=== PATIENT | female | born 1960 | race Caucasian/White ===

== ENCOUNTER 2022-08-20 12:24 | Emergency (ER) | payer MEDICAID ==
[~2022-08-20] VITALS: Ht 162.6 cm; Wt 82.5 kg
[2022-08-20] MEDS ORDERED: ALBUTEROL SULF 2.5 MG/0.5ML(0.5%) NEB SOLN NEB ONE (12:45)
[2022-08-20] MEDS ORDERED: DexAMETHasone SOD PHOS 10MG/1ML VIAL INJ IV ONE (12:45)
[2022-08-20] MEDS ORDERED: IPRATROPIUM BROM 0.5 MG/2.5ML INH SOL NEB ONE (12:45)
[2022-08-20 12:57] VITALS: BP 140/67
[2022-08-20 13:23] LABS: Basophils # (auto) 0 10 ^3/uL (0-0.2); Basophils % (auto) 0.4 % (0.0-2.0); Eosinophils # (auto) 0 10 ^3/uL (0-0.8); Eosinophils % (auto) 0.3 % (0.0-7.0); Hematocrit 44.8 % (36.0-46.0); Hemoglobin 14.7 g/dL (12.2-16.2); Lymphocytes # (auto) 0.8 10 ^3/uL (0.4-5.4); Lymphocytes % (auto) 6.4 % (10.0-50.0); Mean Corpuscular Hemoglobin 29.1 pg (28.0-32.0); Mean Corpuscular Hgb Conc. 32.9 g/dL (32.0-36.0); Mean Corpuscular Volume 88.5 fL (80.0-100.0); Monocytes # (auto) 0.2 10 ^3/uL (0-1.3); Monocytes % (auto) 1.7 % (0.0-12.0); Neutrophils # (auto) 10.9 10 ^3/uL (1.6-8.6); Neutrophils % (auto) 91.2 % (37.0-80.0); Nucleated Red Blood Cells % 0.1 %; Red Blood Cells 5.06 10^6/uL (4.0-5.20); Red Cell Distribution Width 14.6 % (11.8-14.3); White Blood Cell 11.9 10^3/uL (4.4-10.8)
[2022-08-20 13:48] LABS: Albumin 3.7 g/dL (3.4-5.0); Calcium 8.8 mg/dL (8.5-10.1); Potassium 4.5 mmol/L (3.5-5.1)
[2022-08-20 13:51] LABS: BUN/Creatinine Ratio 14.6 (10.0-20.0); Bilirubin, Total 0.4 mg/dL (0.2-1.0); Total Protein 7.6 g/dL (6.4-8.2)
[2022-08-20 14:41] LABS: Urine Bacteria NONE SEEN /hpf (None Seen); Urine Blood Negative /uL (Negative); Urine Mucus FEW (None Seen); Urine Specific Gravity 1.021 (1.001-1.035); Urine WBC 2 /hpf (0 - 5)
[2022-08-20] MEDS ORDERED: PRED20TA2 PO (15:36)
== END 2022-08-20 15:45 | disposition left against medical advice (07) ==
LOC: ER 12:24
DX: J45.901 Unspecified asthma with (acute) exacerbation (principal); R09.02 Hypoxemia; J81.1 Chronic pulmonary edema; E11.9 Type 2 diabetes mellitus without complications; I10 Essential (primary) hypertension
CPT/HCPCS: 36415; 71045; 80053; 81001; 83605; 83735; 83880; 84484; 85025; 93005; 94640; 96374; 99285; J1100; J7644

== ENCOUNTER 2022-12-29 18:49 | Inpatient (IN) | payer MEDICAID ==
[~2022-12-29] VITALS: Ht 162.6 cm; Wt 63.8 kg
[~2022-12-29 18:49] MED LIST: PRED20TA2 PO
[2022-12-29 20:13] LABS: Basophils # (auto) 0.1 10 ^3/uL (0-0.2); Basophils % (auto) 0.6 % (0.0-2.0); Eosinophils # (auto) 0.1 10 ^3/uL (0-0.8); Eosinophils % (auto) 0.6 % (0.0-7.0); Hematocrit 35.1 % (36.0-46.0); Hemoglobin 11.3 g/dL (12.2-16.2); Lymphocytes # (auto) 1.2 10 ^3/uL (0.4-5.4); Lymphocytes % (auto) 7.6 % (10.0-50.0); Mean Corpuscular Hemoglobin 27.9 pg (28.0-32.0); Mean Corpuscular Hgb Conc. 32.2 g/dL (32.0-36.0); Mean Corpuscular Volume 86.6 fL (80.0-100.0); Monocytes # (auto) 0.9 10 ^3/uL (0-1.3); Monocytes % (auto) 5.7 % (0.0-12.0); Neutrophils % (auto) 85.5 % (37.0-80.0); Red Blood Cells 4.05 10^6/uL (4.0-5.20); White Blood Cell 15.2 10^3/uL (4.4-10.8)
[2022-12-29 20:35] LABS: Alanine Aminotransferase 20 U/L (7-40); Albumin 3.5 g/dL (3.2-4.8); Alkaline Phosphatase 233 U/L (46-116); Anion Gap 8 (5-15); Aspartate Aminotransferase 16 U/L (13-40); BUN/Creatinine Ratio 23.5 (10.0-20.0); Bilirubin, Total 0.3 mg/dL (0.2-1.0); Blood Urea Nitrogen 20 mg/dL (9-23); Calcium 11.5 mg/dL (8.5-10.1); Carbon Dioxide 25 mmol/L (20-30); Chloride 102 mmol/L (98-107); Glucose 334 mg/dL (74-106); Sodium 135 mmol/L (136-145); Total Protein 6.8 g/dL (5.7-8.2)
[2022-12-29 20:44] VITALS: PULSE 94; RESP 18; O2SAT 96
[2022-12-29] MEDS ORDERED: SODIUM CHLORIDE 0.9% 1,000 ML IVB ONE (21:30)
[2022-12-29] MEDS ORDERED: ALBUTEROL SULF 2.5 MG/0.5ML(0.5%) NEB SOLN HHN ONE (21:30)
[2022-12-29] MEDS ORDERED: DexAMETHasone SOD PHOS 10MG/1ML VIAL INJ IV ONE (21:30)
[2022-12-29] MEDS ORDERED: ACETAMINOPHEN 325 MG TAB PO ONE (21:30)
[2022-12-29] MEDS ORDERED: cefTRIAXone 1GM/50ML D5W 50 ML IV ONE (21:30)
[2022-12-29] MEDS ORDERED: IPRATROPIUM BROM 0.5 MG/2.5ML INH SOL HHN ONE (21:30)
[2022-12-29] MEDS ORDERED: ONDANSETRON HCL 4 MG/2 ML VIAL IV ONE ×2 (21:30)
[2022-12-29] MEDS ORDERED: ASPirin 81 mg TAB PO ONE (21:30)
[2022-12-29] MEDS ORDERED: AZITHROMYCIN 500MG/ 250ML 250 ML IV ONE (21:30)
[2022-12-29] MEDS ORDERED: HYDROmorphone HCL 2 MG/ML VL/or syr IV ONE (21:30)
[2022-12-29] MEDS ORDERED: PANTOPRAZOLE 40 MG/10 ML VIAL INJ IV ONE (21:30)
[2022-12-29 21:47] LABS: Base Excess 0.1 mmol/L (-2.0-2.0)
[2022-12-29 21:53] LABS: Blood Alcohol < 3.0 mg/dL (<10); Magnesium 1.4 mg/dL (1.6-2.6)
[2022-12-29 21:56] LABS: INR 1.15 (0.9-1.15); Partial Thromboplastin Time 29.9 SEC (24.5-34.5)
[2022-12-29] MEDS ORDERED: IOHEXOL 350 MG/ML 100ML IJ ONE (23:00)
[2022-12-29 23:10] VITALS: O2SAT 97
[2022-12-29 23:41] LABS: COVID19 ANTIGEN SOFIA FIA NEGATIVE (NEGATIVE); Rapid Influenza A Negative (Negative); Rapid Influenza B Negative (Negative)
[2022-12-30] VITALS (8 sets, daily range): BP systolic 137–150; BP diastolic 70; PULSE 79–90; RESP 15–17; TEMP 97.7–98.2; O2SAT 97–98
[2022-12-30] MEDS ORDERED: HYDROmorphone HCL 2 MG/ML VL/or syr IV ONE (02:00)
[2022-12-30] MEDS ORDERED: ONDANSETRON HCL 4 MG/2 ML VIAL IV ONE (02:00)
[2022-12-30] MEDS ORDERED: SUCR1TAB PO (02:59)
[2022-12-30] MEDS ORDERED: GABA800T97 PO (02:59)
[2022-12-30] MEDS ORDERED: MORP30TA PO (02:59)
[2022-12-30] MEDS ORDERED: AMLO1TAB23 PO (02:59)
[2022-12-30] MEDS ORDERED: APIX5TAB PO (02:59)
[2022-12-30] MEDS ORDERED: ENAL1TAB48 PO (02:59)
[2022-12-30] MEDS ORDERED: DEXTROSE (50%) 50ML SYRG IV PRN (03:00)
[2022-12-30] MEDS ORDERED: NITROGLYCERIN 0.4 MG SL TAB SL PRN (03:00)
[2022-12-30] MEDS ORDERED: MORPHINE SULFATE INJ 2 MG/ml SYRG IV PRN (03:00)
[2022-12-30] MEDS ORDERED: ACETAMINOPHEN 325 MG TAB PO PRN (03:00)
[2022-12-30 03:29] LABS: Urine Bacteria NONE SEEN /hpf (None Seen); Urine Blood Negative /uL (Negative); Urine Clarity Clear (Clear); Urine Color Yellow (Yellow); Urine Protein, UAD TRACE (Negative); Urine Specific Gravity 1.035 (1.001-1.035); Urine Urobilinogen Normal (Negative); Urine WBC 2 /hpf (0 - 5); Urine pH 6.5 (5.0-8.0)
[2022-12-30 04:04] LABS: Amphetamine Screen, Urine Neg (NEGATIVE); Barbiturate Scree,Urine Neg (NEGATIVE); Benzodiazephine Screen, Urine Neg (NEGATIVE); Cannabinoid Screen, Urine Pos (NEGATIVE); Cocaine Screen, Urine Neg (NEGATIVE); Opiate Scree,Urine Pos (NEGATIVE); Phencyclidine Screen, Urine Neg (NEGATIVE)
[2022-12-30 05:23] LABS: Triglycerides 86 mg/dL (< 150)
[2022-12-30 05:24] LABS: LDL Cholesterol 57 mg/dL (< 100)
[2022-12-30 05:25] LABS: Cholesterol 130 mg/dL (< 200); HDL Cholesterol 47 mg/dL (40-59)
[2022-12-30] MEDS: InsuLIN REG 1unit/0.01ml Soln (100units/ml) SC SCH ×4 (07:15→21:52)
[2022-12-30] MEDS: ACCU-CHEK COMFORT CURVE STRIP VI SCH ×4 (07:16→21:51)
[2022-12-30] MEDS: ONDANSETRON HCL 4 MG/2 ML VIAL IV PRN (08:13)
[2022-12-30] MEDS: MORPHINE SULFATE INJ 2 MG/ml SYRG IV PRN ×4 (08:13→21:14)
[2022-12-30] MEDS ORDERED: ENOXAPARIN SOD 40 MG/0.4 ML SYRINGE SC SCH (10:00)
[2022-12-30] MEDS: PANTOPRAZOLE 40 MG/10 ML VIAL INJ IV SCH (10:22)
[2022-12-30] MEDS: ENOXAPARIN SOD 60 MG/0.6 ML SYRINGE SC SCH ×2 (10:23→21:19)
[2022-12-30] MEDS: amLODIPine BESYLATE 5 MG TAB PO SCH (10:23)
[2022-12-30] MEDS: predniSONE 20 MG TAB PO SCH (10:23)
[2022-12-30] MEDS: ENALAPRIL MALEATE 10 MG TAB PO SCH ×2 (10:23→21:14)
[2022-12-30] MEDS: SUCRALFATE 1 GM TAB PO SCH ×2 (10:23→21:14)
[2022-12-30] MEDS ORDERED: HYDR-4795 (12:59)
[2022-12-30] MEDS ORDERED: TRAZ1TAB12 PO (12:59)
[2022-12-30] MEDS: GABAPENTIN 300 MG CAP PO SCH ×2 (14:26→21:13)
[2022-12-30] MEDS: AZITHROMYCIN 500MG/ 250ML 250 ML IV SCH (21:15)
[2022-12-31] VITALS (9 sets, daily range): BP systolic 139–143; BP diastolic 71–73; PULSE 79–101; RESP 18–20; TEMP 97.8–98.3; O2SAT 95–98
[2022-12-31] MEDS: TEMAZEPAM 15 MG CAP PO PRN ×2 (00:10→22:54)
[2022-12-31] MEDS: MORPHINE SULFATE INJ 2 MG/ml SYRG IV PRN ×5 (02:07→19:58)
[2022-12-31 05:55] LABS: Basophils # (auto) 0.1 10 ^3/uL (0-0.2); Basophils % (auto) 0.5 % (0.0-2.0); Eosinophils # (auto) 0 10 ^3/uL (0-0.8); Eosinophils % (auto) 0.2 % (0.0-7.0); Hematocrit 37.3 % (36.0-46.0); Hemoglobin 12.1 g/dL (12.2-16.2); Lymphocytes # (auto) 1.5 10 ^3/uL (0.4-5.4); Lymphocytes % (auto) 7.4 % (10.0-50.0); Mean Corpuscular Hemoglobin 27.5 pg (28.0-32.0); Mean Corpuscular Hgb Conc. 32.4 g/dL (32.0-36.0); Mean Corpuscular Volume 84.9 fL (80.0-100.0); Monocytes # (auto) 1.2 10 ^3/uL (0-1.3); Neutrophils # (auto) 17.7 10 ^3/uL (1.6-8.6); Neutrophils % (auto) 85.9 % (37.0-80.0); Red Blood Cells 4.39 10^6/uL (4.0-5.20); Red Cell Distribution Width 13.7 % (11.8-14.3); White Blood Cell 20.5 10^3/uL (4.4-10.8)
[2022-12-31 06:07] LABS: Alanine Aminotransferase 16 U/L (7-40); Albumin 3.5 g/dL (3.2-4.8); Alkaline Phosphatase 222 U/L (46-116); Anion Gap 7 (5-15); Aspartate Aminotransferase 10 U/L (13-40); BUN/Creatinine Ratio 17.2 (10.0-20.0); Blood Urea Nitrogen 10 mg/dL (9-23); Carbon Dioxide 25 mmol/L (20-30); Chloride 103 mmol/L (98-107); Glucose 165 mg/dL (74-106); Potassium 3.2 mmol/L (3.5-5.1); Sodium 135 mmol/L (136-145)
[2022-12-31 06:08] LABS: Bilirubin, Total 0.3 mg/dL (0.2-1.0)
[2022-12-31] MEDS: ACCU-CHEK COMFORT CURVE STRIP VI SCH ×4 (06:15→21:53)
[2022-12-31] MEDS: GABAPENTIN 300 MG CAP PO SCH ×3 (06:16→21:52)
[2022-12-31] MEDS: InsuLIN REG 1unit/0.01ml Soln (100units/ml) SC SCH ×4 (06:16→22:03)
[2022-12-31] MEDS: DOCUSATE SOD 100 MG CAP PO PRN ×2 (06:20→18:33)
[2022-12-31] MEDS: HYDROcodone-ACET 5/325MG TAB PO PRN ×2 (08:54→21:52)
[2022-12-31] MEDS: PANTOPRAZOLE 40 MG/10 ML VIAL INJ IV SCH (10:53)
[2022-12-31] MEDS: ENOXAPARIN SOD 60 MG/0.6 ML SYRINGE SC SCH ×2 (10:53→21:52)
[2022-12-31] MEDS: ENALAPRIL MALEATE 10 MG TAB PO SCH ×2 (10:54→21:53)
[2022-12-31] MEDS: predniSONE 20 MG TAB PO SCH (10:54)
[2022-12-31] MEDS: SUCRALFATE 1 GM TAB PO SCH ×2 (10:54→21:52)
[2022-12-31] MEDS: amLODIPine BESYLATE 5 MG TAB PO SCH (10:55)
[2022-12-31] MEDS: AZITHROMYCIN 500MG/ 250ML 250 ML IV SCH (21:53)
[2023-01-01] MEDS: InsuLIN REG 1unit/0.01ml Soln (100units/ml) SC SCH ×4 (07:00→21:40)
[2023-01-01] MEDS: ACCU-CHEK COMFORT CURVE STRIP VI SCH ×4 (07:00→21:41)
[2023-01-01 08:00] VITALS: PULSE 85
[2023-01-01] MEDS: predniSONE 20 MG TAB PO SCH (10:00)
[2023-01-01] MEDS: amLODIPine BESYLATE 5 MG TAB PO SCH (10:00)
[2023-01-01] MEDS: ENOXAPARIN SOD 60 MG/0.6 ML SYRINGE SC SCH ×2 (10:00→21:40)
[2023-01-01] MEDS: PANTOPRAZOLE 40 MG/10 ML VIAL INJ IV SCH (10:00)
[2023-01-01] MEDS: ENALAPRIL MALEATE 10 MG TAB PO SCH ×2 (10:00→21:41)
[2023-01-01] MEDS: SUCRALFATE 1 GM TAB PO SCH ×2 (10:00→21:41)
[2023-01-01] MEDS: GABAPENTIN 300 MG CAP PO SCH ×3 (14:33→21:41)
[2023-01-01] MEDS: MORPHINE SULFATE INJ 2 MG/ml SYRG IV PRN ×3 (14:34→22:47)
[2023-01-01 16:55] VITALS: BP 143/76; PULSE 92; RESP 19; TEMP 99.2; O2SAT 95
[2023-01-01] MEDS: DOCUSATE SOD 100 MG CAP PO PRN (18:02)
[2023-01-01 18:42] VITALS: O2SAT 95
[2023-01-01 19:36] LABS: Basophils # (auto) 0.1 10 ^3/uL (0-0.2); Basophils % (auto) 0.4 % (0.0-2.0); Eosinophils # (auto) 0 10 ^3/uL (0-0.8); Hematocrit 37.8 % (36.0-46.0); Hemoglobin 12.4 g/dL (12.2-16.2); Lymphocytes # (auto) 0.7 10 ^3/uL (0.4-5.4); Lymphocytes % (auto) 4.3 % (10.0-50.0); Mean Corpuscular Hemoglobin 28.1 pg (28.0-32.0); Mean Corpuscular Hgb Conc. 32.8 g/dL (32.0-36.0); Mean Corpuscular Volume 85.6 fL (80.0-100.0); Monocytes # (auto) 0.5 10 ^3/uL (0-1.3); Monocytes % (auto) 3.3 % (0.0-12.0); Neutrophils # (auto) 14.3 10 ^3/uL (1.6-8.6); Red Blood Cells 4.42 10^6/uL (4.0-5.20); Red Cell Distribution Width 13.7 % (11.8-14.3); White Blood Cell 15.5 10^3/uL (4.4-10.8)
[2023-01-01 19:45] LABS: Alanine Aminotransferase 13 U/L (7-40); Albumin 3.5 g/dL (3.2-4.8); Alkaline Phosphatase 233 U/L (46-116); Anion Gap 6 (5-15); Aspartate Aminotransferase 9 U/L (13-40); BUN/Creatinine Ratio 18.8 (10.0-20.0); Bilirubin, Total 0.3 mg/dL (0.2-1.0); Blood Urea Nitrogen 15 mg/dL (9-23); Calcium 10.9 mg/dL (8.5-10.1); Carbon Dioxide 26 mmol/L (20-30); Chloride 101 mmol/L (98-107); Glucose 342 mg/dL (74-106); Potassium 3.5 mmol/L (3.5-5.1); Sodium 133 mmol/L (136-145)
[2023-01-01 19:46] LABS: Total Protein 7.1 g/dL (5.7-8.2)
[2023-01-01 20:10] VITALS: BP 124/69; PULSE 89; PULSE 94; RESP 18; TEMP 97.7
[2023-01-01] MEDS: HYDROcodone-ACET 5/325MG TAB PO PRN (21:41)
[2023-01-02] VITALS (9 sets, daily range): BP systolic 103–135; BP diastolic 55–69; PULSE 81–98; RESP 18; TEMP 37; O2SAT 92–97
[2023-01-02] MEDS: ONDANSETRON HCL 4 MG/2 ML VIAL IV PRN (02:39)
[2023-01-02] MEDS: MORPHINE SULFATE INJ 2 MG/ml SYRG IV PRN ×5 (02:45→22:32)
[2023-01-02] MEDS: HYDROcodone-ACET 5/325MG TAB PO PRN ×2 (04:32→20:16)
[2023-01-02 06:25] LABS: Basophils # (auto) 0.1 10 ^3/uL (0-0.2); Basophils % (auto) 0.3 % (0.0-2.0); Eosinophils # (auto) 0.1 10 ^3/uL (0-0.8); Eosinophils % (auto) 0.5 % (0.0-7.0); Hematocrit 38.1 % (36.0-46.0); Hemoglobin 12.3 g/dL (12.2-16.2); Lymphocytes # (auto) 1.6 10 ^3/uL (0.4-5.4); Lymphocytes % (auto) 8.6 % (10.0-50.0); Mean Corpuscular Hemoglobin 27.4 pg (28.0-32.0); Mean Corpuscular Hgb Conc. 32.4 g/dL (32.0-36.0); Mean Corpuscular Volume 84.7 fL (80.0-100.0); Monocytes # (auto) 1.3 10 ^3/uL (0-1.3); Monocytes % (auto) 6.8 % (0.0-12.0); Neutrophils # (auto) 15.5 10 ^3/uL (1.6-8.6); Neutrophils % (auto) 83.8 % (37.0-80.0); White Blood Cell 18.5 10^3/uL (4.4-10.8)
[2023-01-02 06:36] LABS: Alanine Aminotransferase 14 U/L (7-40); Alkaline Phosphatase 239 U/L (46-116); Anion Gap 8 (5-15); BUN/Creatinine Ratio 27.1 (10.0-20.0); Blood Urea Nitrogen 16 mg/dL (9-23); Carbon Dioxide 26 mmol/L (20-30); Chloride 103 mmol/L (98-107); Glucose 131 mg/dL (74-106); Sodium 137 mmol/L (136-145)
[2023-01-02 06:37] LABS: Albumin 3.4 g/dL (3.2-4.8); Aspartate Aminotransferase 11 U/L (13-40); Bilirubin, Total 0.4 mg/dL (0.2-1.0); Total Protein 6.8 g/dL (5.7-8.2)
[2023-01-02] MEDS: GABAPENTIN 300 MG CAP PO SCH ×3 (06:58→21:16)
[2023-01-02] MEDS: ACCU-CHEK COMFORT CURVE STRIP VI SCH ×4 (06:59→22:00)
[2023-01-02] MEDS: InsuLIN REG 1unit/0.01ml Soln (100units/ml) SC SCH ×4 (07:02→22:28)
[2023-01-02] MEDS ORDERED: POTASSIUM CHL 20 Meq TABLET PO ONE (08:45)
[2023-01-02] MEDS: ENOXAPARIN SOD 60 MG/0.6 ML SYRINGE SC SCH ×2 (10:00→21:16)
[2023-01-02] MEDS: DOXYCYCLINE 100MG/250ML 250 ML IV SCH ×2 (10:25→21:15)
[2023-01-02] MEDS: PANTOPRAZOLE 40 MG/10 ML VIAL INJ IV SCH (10:25)
[2023-01-02] MEDS: SUCRALFATE 1 GM TAB PO SCH ×2 (10:31→21:15)
[2023-01-02] MEDS: amLODIPine BESYLATE 5 MG TAB PO SCH (10:33)
[2023-01-02] MEDS: predniSONE 20 MG TAB PO SCH (10:33)
[2023-01-02] MEDS: ENALAPRIL MALEATE 10 MG TAB PO SCH ×2 (10:35→21:16)
[2023-01-03] VITALS (11 sets, daily range): BP systolic 128–154; BP diastolic 60–78; PULSE 64–108; RESP 16–22; TEMP 36.4; O2SAT 92–100
[2023-01-03] MEDS: MORPHINE SULFATE INJ 2 MG/ml SYRG IV PRN ×2 (04:45→08:53)
[2023-01-03] MEDS: GABAPENTIN 300 MG CAP PO SCH ×3 (06:00→20:53)
[2023-01-03] MEDS: ACCU-CHEK COMFORT CURVE STRIP VI SCH ×4 (06:47→21:50)
[2023-01-03] MEDS: InsuLIN REG 1unit/0.01ml Soln (100units/ml) SC SCH ×4 (06:47→21:50)
[2023-01-03] MEDS: DOXYCYCLINE 100MG/250ML 250 ML IV SCH ×2 (08:06→20:50)
[2023-01-03] MEDS: PANTOPRAZOLE 40 MG/10 ML VIAL INJ IV SCH (08:06)
[2023-01-03] MEDS: ENALAPRIL MALEATE 10 MG TAB PO SCH ×2 (08:39→20:56)
[2023-01-03] MEDS: SUCRALFATE 1 GM TAB PO SCH ×2 (08:41→20:56)
[2023-01-03] MEDS: amLODIPine BESYLATE 5 MG TAB PO SCH (08:43)
[2023-01-03] MEDS: predniSONE 20 MG TAB PO SCH (08:44)
[2023-01-03] MEDS: ENOXAPARIN SOD 60 MG/0.6 ML SYRINGE SC SCH (08:46)
[2023-01-03] MEDS ORDERED: LIDOCAINE 2% JELLY 11ml (GLYDO) ONE (08:49)
[2023-01-03] MEDS ORDERED: LIDOCAINE 2%HCL (LOCAL ANESTH.) INJ 20ML MDV ONE (08:50)
[2023-01-03] MEDS ORDERED: EPINEPHrine HCL 1 MG/1 ML AMP ONE (08:50)
[2023-01-03] MEDS ORDERED: SODIUM CHLORIDE LOCK 10 ML ONE (08:50)
[2023-01-03] MEDS ORDERED: fentaNYL CITRATE 100 MCG/2 ML VL ONE (08:51)
[2023-01-03] MEDS ORDERED: MIDAZOLAM HCL 5 MG/ML-1ML VIAL ONE (08:51)
[2023-01-03] MEDS ORDERED: FLUMAZENIL 0.1 MG/ML INJ 10ML MDV IV ONE (08:57)
[2023-01-03] MEDS ORDERED: NALOXONE HCL 0.4 MG/ML VIAL ONE (08:57)
[2023-01-03] MEDS ORDERED: GLYCOPYRROLATE 0.2 MG/ML 1ML VIAL ONE (09:01)
[2023-01-03] MEDS: IPRATROPIUM BROM 0.5 MG/2.5ML INH SOL NEB PRN (11:41)
[2023-01-03] MEDS: HYDROmorphone HCL 2 MG/ML VL/or syr IV PRN ×3 (13:49→22:13)
[2023-01-04] VITALS (15 sets, daily range): BP systolic 130–146; BP diastolic 67–75; PULSE 90–110; RESP 18–24; TEMP 98.1–98.6; O2SAT 94–100
[2023-01-04] MEDS: GABAPENTIN 300 MG CAP PO SCH ×3 (05:41→21:15)
[2023-01-04] MEDS: HYDROmorphone HCL 2 MG/ML VL/or syr IV PRN ×4 (05:46→21:16)
[2023-01-04] MEDS: InsuLIN REG 1unit/0.01ml Soln (100units/ml) SC SCH ×4 (06:25→21:18)
[2023-01-04] MEDS: ACCU-CHEK COMFORT CURVE STRIP VI SCH ×4 (06:26→21:18)
[2023-01-04] MEDS ORDERED: SODIUM CHLORIDE LOCK 10 ML ONE (08:50)
[2023-01-04] MEDS ORDERED: GLYCOPYRROLATE 0.2 MG/ML 1ML VIAL ONE (08:50)
[2023-01-04] MEDS ORDERED: FLUMAZENIL 0.1 MG/ML INJ 10ML MDV IV ONE (08:50)
[2023-01-04] MEDS ORDERED: LIDOCAINE 2%HCL (LOCAL ANESTH.) INJ 20ML MDV ONE (08:50)
[2023-01-04] MEDS ORDERED: NALOXONE HCL 0.4 MG/ML VIAL ONE (08:50)
[2023-01-04] MEDS ORDERED: diphenhdrAMINE HCL 50 MG/1 ML VL ONE (08:51)
[2023-01-04] MEDS: DOXYCYCLINE 100MG/250ML 250 ML IV SCH ×2 (09:00→21:05)
[2023-01-04] MEDS ORDERED: EPINEPHrine HCL 1 MG/1 ML AMP ONE (09:03)
[2023-01-04] MEDS ORDERED: LIDOCAINE 2% JELLY 11ml (GLYDO) ONE (09:03)
[2023-01-04] MEDS: fentaNYL CITRATE 100 MCG/2 ML VL ONE ×3 (09:16→09:32)
[2023-01-04] MEDS: MIDAZOLAM HCL 5 MG/ML-1ML VIAL ONE ×4 (09:16→09:33)
[2023-01-04] MEDS: PANTOPRAZOLE 40 MG/10 ML VIAL INJ IV SCH (10:00)
[2023-01-04] MEDS: amLODIPine BESYLATE 5 MG TAB PO SCH (10:00)
[2023-01-04] MEDS: ENALAPRIL MALEATE 10 MG TAB PO SCH ×2 (10:00→21:16)
[2023-01-04] MEDS: predniSONE 20 MG TAB PO SCH (10:00)
[2023-01-04] MEDS: SUCRALFATE 1 GM TAB PO SCH ×2 (10:00→21:06)
[2023-01-04] MEDS: HYDROcodone-ACET 5/325MG TAB PO PRN (10:55)
[2023-01-04] MEDS: IPRATROPIUM BROM 0.5 MG/2.5ML INH SOL NEB PRN ×2 (14:15→23:00)
[2023-01-04] MEDS: ENOXAPARIN SOD 60 MG/0.6 ML SYRINGE SC SCH (21:19)
[2023-01-05] VITALS (7 sets, daily range): BP systolic 125–153; BP diastolic 69–72; PULSE 20–109; RESP 16–20; TEMP 98–98.6; O2SAT 96–99
[2023-01-05] MEDS: HYDROmorphone HCL 2 MG/ML VL/or syr IV PRN ×4 (02:43→18:10)
[2023-01-05] MEDS: InsuLIN REG 1unit/0.01ml Soln (100units/ml) SC SCH ×3 (06:03→18:19)
[2023-01-05] MEDS: GABAPENTIN 300 MG CAP PO SCH ×2 (06:06→13:21)
[2023-01-05] MEDS: ACCU-CHEK COMFORT CURVE STRIP VI SCH ×3 (06:06→18:10)
[2023-01-05] MEDS: ENOXAPARIN SOD 60 MG/0.6 ML SYRINGE SC SCH (08:36)
[2023-01-05] MEDS: amLODIPine BESYLATE 5 MG TAB PO SCH (08:37)
[2023-01-05] MEDS: PANTOPRAZOLE 40 MG/10 ML VIAL INJ IV SCH (08:37)
[2023-01-05] MEDS: ENALAPRIL MALEATE 10 MG TAB PO SCH (08:37)
[2023-01-05] MEDS: predniSONE 20 MG TAB PO SCH (08:37)
[2023-01-05] MEDS: SUCRALFATE 1 GM TAB PO SCH (08:38)
[2023-01-05] MEDS: DOXYCYCLINE 100MG/250ML 250 ML IV SCH (08:47)
[2023-01-05 13:19] LABS: Hematocrit 38.8 % (36.0-46.0); Hemoglobin 12.7 g/dL (12.2-16.2); Mean Corpuscular Hemoglobin 27.6 pg (28.0-32.0); Mean Corpuscular Hgb Conc. 32.7 g/dL (32.0-36.0); Mean Corpuscular Volume 84.5 fL (80.0-100.0); Red Blood Cells 4.59 10^6/uL (4.0-5.20); Red Cell Distribution Width 13.6 % (11.8-14.3); White Blood Cell 17.3 10^3/uL (4.4-10.8)
[2023-01-05 13:33] LABS: Basophils % (manual) 0 (0.0-2.0); Blast Cells 0; Eosinophils % (manual) 0 (0-7); Metamyelocytes % 0; Myelocytes % 0; Promyelocytes % 0; Reactive Lymphocytes 0
[2023-01-05 13:37] LABS: Chloride 102 mmol/L (98-107); Potassium 3.2 mmol/L (3.5-5.1); Sodium 135 mmol/L (136-145)
[2023-01-05 13:38] LABS: Anion Gap 9 (5-15); Carbon Dioxide 24 mmol/L (20-30)
[2023-01-05 13:43] LABS: BUN/Creatinine Ratio 19.1 (10.0-20.0); Blood Urea Nitrogen 13 mg/dL (9-23); Glucose 207 mg/dL (74-106)
[2023-01-05 17:13] LABS: Band Neutrophils % (manual) 2; Lymphocytes % (manual) 5 (10.0-50.0); Monocytes % (manual) 2 (0-12); Platelet Estimate Adequate; RBC Morphology Normal
== END 2023-01-05 19:30 | disposition home or self-care (01) | DRG 136 ==
LOC: ER 18:49 → EDBD 18:49 → TELE 12-30 02:57 → TELE-CENTR 12-30 11:51
PROVIDERS: ADMIT Nurse Practitioner; ATTEND Nurse Practitioner
PROC: 0B9D8ZX Drainage of Right Middle Lung Lobe, Via Natural or Artificial Opening Endoscopic, Diagnostic (ICD-10-PCS; principal; 2023-01-04 09:11)
DX: C34.90 Malignant neoplasm of unspecified part of unspecified bronchus or lung (principal); J15.69 Pneumonia due to other Gram-negative bacteria; J96.10 Chronic respiratory failure, unspecified whether with hypoxia or hypercapnia; J44.1 Chronic obstructive pulmonary disease with (acute) exacerbation; J15.9 Unspecified bacterial pneumonia; J98.11 Atelectasis; I10 Essential (primary) hypertension; E11.65 Type 2 diabetes mellitus with hyperglycemia; M54.50 Low back pain, unspecified; E83.52 Hypercalcemia; R00.0 Tachycardia, unspecified; R79.89 Other specified abnormal findings of blood chemistry; Z20.822 Contact with and (suspected) exposure to COVID-19; Z79.899 Other long term (current) drug therapy; Z80.0 Family history of malignant neoplasm of digestive organs; Z80.3 Family history of malignant neoplasm of breast; Z82.3 Family history of stroke; Z82.49 Family history of ischemic heart disease and other diseases of the circulatory system; Z85.118 Personal history of other malignant neoplasm of bronchus and lung; Z86.711 Personal history of pulmonary embolism; Z87.891 Personal history of nicotine dependence
CPT/HCPCS: 31623; 36415; 36600; 71045; 71275; 78306; 80048; 80053; 80061; 80307; 80320; 81001; 82805; 82962; 83036; 83605; 83735; 83880; 84443; 84484; 85007; 85025; 85027; 85379; 85610; 85730; 87040; 87070; 87077; 87186; 87205; 87426; 87804; 93005; 93306; 93970; 94640; C9113; G0378; J0171; J0696; J1100; J1815; J2250; J2405; J3490